=== PATIENT | male | born 1980 | race Caucasian/White ===

== ENCOUNTER 2024-08-13 12:45 | Outpatient (CLI) | payer BC | END 2024-08-13 12:46 | disposition home or self-care (01) | LOC: CSHCT 12:45 | PROVIDERS: ATTEND Internal Medicine Gastroenterology | DX: R94.5 Abnormal results of liver function studies (principal); K51.90 Ulcerative colitis, unspecified, without complications; K83.8 Other specified diseases of biliary tract; K59.00 Constipation, unspecified | CPT/HCPCS: 74178 ==

== ENCOUNTER 2025-06-25 08:40 | Outpatient (CLI) | payer BC | END 2025-06-25 08:41 | disposition home or self-care (01) | LOC: CSHULT 08:40 | PROVIDERS: ATTEND Internal Medicine Gastroenterology | DX: K51.90 Ulcerative colitis, unspecified, without complications (principal); R10.11 Right upper quadrant pain; K76.0 Fatty (change of) liver, not elsewhere classified; K83.8 Other specified diseases of biliary tract | CPT/HCPCS: 76705 ==